=== PATIENT | male | born 1970 | race Caucasian/White ===

== ENCOUNTER 2017-05-15 22:13 | Emergency (ER) | payer MEDICAID ==
[2017-05-15 22:28] VITALS: BP 132/86; PULSE 64; RESP 18; TEMP 97.8; O2SAT 96
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
--- NOTE | 2017-05-16 08:11 | RAD ---
PROCEDURE: Radiographs of the Left Shoulder HISTORY: pain at ac joint COMPARISON: No prior. FINDINGS: BONES: Mild lateral clavicular osseous hypertrophy consistent with mild degenerative changes. No fracture. JOINTS: . Glenohumeral and acromioclavicular joints preserved. No osteoarthritis. SOFT TISSUES: Normal. OTHER FINDINGS: None. IMPRESSION: No fracture or acromioclavicular separation.
== END 2017-05-15 23:32 | disposition home or self-care (01) ==
LOC: C.ER 22:13
DX: S49.92XA Unspecified injury of left shoulder and upper arm, initial encounter (principal); X58.XXXA Exposure to other specified factors, initial encounter; Y93.19 Activity, other involving water and watercraft; Y92.832 Beach as the place of occurrence of the external cause
CPT/HCPCS: 73030; 96372; 99284; J1885

== ENCOUNTER 2018-02-26 18:10 | Emergency (ER) | payer MEDICAID ==
--- NOTE | 2018-02-26 19:36 | C.PDOC ---
History Of Present Illness Patient complains of multiple symptoms including subjective fever, chills, generalized bodyaches, nausea, non-productive cough and scratchy throat for 3 days. He had not take any medication for his symptoms. Denies any chest pain, SOB, abdominal pain, diarrhea, urinary symptom, recent travel or sick contacts. Time Seen by Provider: 02/26/18 19:28 Chief Complaint (Nursing): Flu-like Symptoms History Per: Patient History/Exam Limitations: no limitations Onset/Duration Of Symptoms: Days Current Symptoms Are (Timing): Still Present Location Of Pain: Throat Sick Contacts (Context): None Associated Symptoms: Fever, Cough, Myalgias, Nasal Congestion, Diarrhea Ear Symptoms: Bilateral: None Recent travel outside of the [place]: No Additional History Per: Patient Past Medical History Reviewed: Historical Data, Nursing Documentation, Vital Signs Vital Signs: Last Vital Signs Temp 98.2 F 02/26/18 20:07 Pulse 85 02/26/18 20:07 Resp 16 02/26/18 20:07 BP 128/80 02/26/18 20:07 Pulse Ox 97 02/26/18 20:13 - Medical History PMH: HIV Denies: Depression (denies) Surgical History: No Surg Hx Family History: States: Unknown Family Hx - Social History Hx Tobacco Use: No Hx Alcohol Use: No ("NOT NOW") Hx Substance Use: Yes - Immunization History Hx Tetanus Toxoid Vaccination: Yes Hx Influenza Vaccination: Yes Hx Pneumococcal Vaccination: No Review Of Systems Constitutional: Positive for: Fever. Negative for: Chills ENT: Positive for: Nose Congestion, Throat Pain Respiratory: Positive for: Cough Gastrointestinal: Positive for: Diarrhea. Negative for: Nausea, Vomiting Skin: Negative for: Rash Neurological: Negative for: Weakness, Numbness Physical Exam - Physical Exam Appears: Non-toxic, No Acute Distress Skin: Normal Color, Warm, Dry Head: Atraumatic, Normacephalic Eye(s): bilateral: Normal Inspection, EOMI Ear(s): Bilateral: Normal Nose: No Discharge Oral Mucosa: Moist Throat: Normal, No Erythema, No Exudate Neck: Normal ROM, Supple Chest: Symmetrical Cardiovascular: Rhythm Regular, No Murmur Respiratory: Normal Breath Sounds, No Rales, No Rhonchi, No Wheezing Extremity: Normal ROM, No Tenderness, No Swelling Neurological/Psych: Oriented x3, Normal Speech Gait: Steady ED Course And Treatment O2 Sat by Pulse Oximetry: 97 (ON RA) Pulse Ox Interpretation: Normal Medical Decision Making Medical Decision Making: Patient with multi-symptom complaints, likely viral. Patient has not received Flu vaccine this season. Based on history, exam findings and widespread influenza will treat for Influenza. Patient appears non-toxic and in no distress. Rx given. Patient advised to rest, drink fluids and take medications for supportive treatment. Patient stable for discharge and given follow up instructions. Disposition Counseled Patient/Family Regarding: Diagnosis, Need For Followup, Rx Given - Disposition [facility]errals: [facility] [Outside] [facility] [employer] [Outside] Disposition: HOME/ ROUTINE Disposition Time: 20:00 Condition: STABLE Additional Instructions: Prescriotions enviados a la farmacia de [facility] Tu enfermedad viral que puede durar hasta christina semana [place] Tylenol o Motrin para cualquier fiebre o dolor [place] medicamento para la tos segn sea necesario [place] Zofran segn sea necesario para las nuseas [place] y descansa Tino un seguimiento con castrejon mdico o clnica Prescriptions: Ibuprofen [Motrin] 1 tab PO TID PRN #30 tab PRN Reason: Pain Ondansetron ODT [Zofran ODT] 1 odt PO BID PRN #6 odt PRN Reason: Nausea/Vomiting Promethazine DM [Phenergan DM Syrup] 5 ml PO Q8 PRN #3 oz PRN Reason: Cough Instructions: Viral Syndrome (DC) Forms: [employer] ([place]ian) Print Language: NIGERIAN - POA Present On Arrival: None - Clinical Impression Clinical Impression: Influenza-like illness - PA / PLANT [employer]ER / Resident Statement MD/DO has reviewed & agrees with the documentation as recorded. - Scribe Statement The provider has reviewed the documentation as recorded by the Scribe Porfirio Kumari All medical record entries made by the Scribe were at my direction and personally dictated by me. I have reviewed the chart and agree that the record accurately reflects my personal performance of the history, physical exam, medical decision making, and the department course for this patient. I have also personally directed, reviewed, and agree with the discharge instructions and disposition.
[2018-02-26 20:12] VITALS: BP 128/80; PULSE 85; RESP 16; TEMP 98.2
[2018-02-26 20:13] VITALS: O2SAT 97
== END 2018-02-26 20:07 | disposition home or self-care (01) ==
LOC: C.ER 18:10
DX: J11.1 Influenza due to unidentified influenza virus with other respiratory manifestations (principal); F17.210 Nicotine dependence, cigarettes, uncomplicated